=== PATIENT | male | born 1975 | race Caucasian/White ===

== ENCOUNTER 2017-10-06 20:51 | Emergency (ER) | payer SELFPAY ==
[2017-10-06] MEDS ORDERED: Acetaminophen/Codeine 30-300mg Tablet ONE (21:39)
[2017-10-06] MEDS ORDERED: Penicillin V Potassium 250 MG TAB ONE (21:39)
== END 2017-10-06 21:45 | disposition home or self-care (01) ==
LOC: NAV ERS 20:51
DX: K04.7 Periapical abscess without sinus (principal); K02.9 Dental caries, unspecified; F17.210 Nicotine dependence, cigarettes, uncomplicated
CPT/HCPCS: 99406

== ENCOUNTER 2018-02-21 18:37 | Emergency (ER) | payer SELFPAY ==
[2018-02-21] MEDS ORDERED: Ketorolac Tromethamine 60 MG/2 ML VIAL ONE (19:04)
== END 2018-02-21 19:20 | disposition home or self-care (01) ==
LOC: NAV ERS 18:37
DX: K02.9 Dental caries, unspecified (principal); F17.210 Nicotine dependence, cigarettes, uncomplicated
CPT/HCPCS: 96372; J1885

== ENCOUNTER 2018-04-17 17:38 | Emergency (ER) | payer SELFPAY ==
[2018-04-17] MEDS ORDERED: predniSONE 20 MG TAB ONE (18:23)
[2018-04-17] MEDS ORDERED: Metoclopramide HCl 10 MG/2 ML VIAL ONE (18:25)
[2018-04-17] MEDS ORDERED: diphenhydrAMINE 50 MG/ML VIAL ONE (18:25)
[2018-04-17 18:26] LABS: #Basophils 0.1 thou/uL (0.0-0.2); #Eosinphils 0.3 thou/uL (0.0-0.7); #Lymphocytes 1.4 thou/uL (1.20-3.40); #Monocytes 0.3 thou/uL (0.11-0.59); #Neutrophils 5.1 thou/uL (1.40-6.50); %Basophils 1.3 % (0.0-1.0); %Eosinophils 4.6 % (0.0-10.0); %Lymphocytes 19.5 % (21.0-51.0); %Monocytes 4.7 % (0.0-10.0); %Neutrophils 69.9 % (42.0-75.0); Hemoglobin 14.7 g/dL (14.0-18.0); Mean Corpuscular HGB CONC 31.2 g/dL (32.0-36.0); Mean Corpuscular Hemoglobin 28.5 pg (27.0-31.0); Mean Corpuscular Volume 91.2 fL (78.0-98.0); Mean Platelet Volume 7.9 fL (7.4-10.4); Platelet Count 228 thou/uL (130-400); RBC Distribution Width 15.1 % (11.5-14.5); Red Blood Cell (RBC) Count 5.15 mill/uL (4.70-6.10); White Blood Cell (WBC) Count 7.3 thou/uL (4.8-10.8)
[2018-04-17 18:28] LABS: Prothrombin Time 13.6 SEC (12.0-14.7)
[2018-04-17 18:37] LABS: ALT (SGPT) 9 U/L (8-55); AST (SGOT) 13 U/L (5-34); Albumin 4.3 g/dL (3.5-5.0); Alkaline Phosphatase 104 U/L (40-150); Anion Gap 13 mmol/L (10-20); BUN (Urea Nitrogen) 12 mg/dL (8.9-20.6); Bilirubin, Total 0.3 mg/dL (0.2-1.2); Calc. Creatinine Clearance 0 mL/min (70-130); Calcium 9.3 mg/dL (7.8-10.44); Carbon Dioxide 24 mmol/L (22-29); Chloride 107 mmol/L (98-107); Estimated GFR-MDRD 80; Globulin 2.7 g/dL (2.4-3.5); Glucose 105 mg/dL (70-105); Sodium 140 mmol/L (136-145)
--- NOTE | 2018-04-17 20:27 | CT ---
CT OF THE BRAIN WITHOUT CONTRAST 04/17/18 COMPARISON: None. HISTORY: Headache. Recently diagnosed with lymphoma. TECHNIQUE: Multiple contiguous axial images were obtained in a CT of the brain without contrast. FINDINGS: The brain is normal in morphology and attenuation without focal lesions or confluent areas of infarct ion. There is no evidence of hydrocephalus, intracranial hemorrhage or extra-axial fluid collections. The calvarium and overlying soft tissues are unremarkable. The visualized paranasal sinuses and masto id air cells are well aerated. IMPRESSION: No evidence of acute intracranial abnormality. POS: [facility]
== END 2018-04-17 19:55 | disposition home or self-care (01) ==
LOC: NAV ERS 17:38
DX: J02.9 Acute pharyngitis, unspecified (principal); I10 Essential (primary) hypertension; F17.210 Nicotine dependence, cigarettes, uncomplicated
CPT/HCPCS: 70450; 80053; 85025; 85610; 87081; 87430; 96374; 96375; J1200; J2765; J7506

== ENCOUNTER 2018-05-07 15:42 | Emergency (ER) | payer SELFPAY ==
[2018-05-07] MEDS ORDERED: HYDROcodone/Acetaminophen 10/325 mg Tablet ONE (16:24)
== END 2018-05-07 16:32 | disposition home or self-care (01) ==
LOC: NAV ERS 15:42
DX: G89.3 Neoplasm related pain (acute) (chronic) (principal); C83.11 Mantle cell lymphoma, lymph nodes of head, face, and neck; R07.0 Pain in throat; F17.210 Nicotine dependence, cigarettes, uncomplicated
CPT/HCPCS: 99283

== ENCOUNTER 2018-05-15 19:58 | Emergency (ER) | payer SELFPAY ==
[2018-05-15] MEDS ORDERED: Ketorolac Tromethamine 60 MG/2 ML VIAL ONE (20:30)
[2018-05-15] MEDS ORDERED: predniSONE 20 MG TAB ONE (20:30)
== END 2018-05-15 20:51 | disposition home or self-care (01) ==
LOC: NAV ERS 19:58
DX: M54.41 Lumbago with sciatica, right side (principal); F17.220 Nicotine dependence, chewing tobacco, uncomplicated
CPT/HCPCS: 96372; J1885; J7506

== ENCOUNTER 2018-11-12 15:18 | Emergency (ER) | payer OTHER ==
[2018-11-12] MEDS ORDERED: Ondansetron PF 4 MG/2 ML Vial ONE (16:06)
[2018-11-12] MEDS ORDERED: diphenhydrAMINE 50 MG/ML VIAL ONE (16:06)
[2018-11-12] MEDS ORDERED: Promethazine HCl 25 MG/ML VIAL ONE (16:06)
[2018-11-12 16:17] LABS: Hemoglobin 13.6 g/dL (14.0-18.0); Mean Corpuscular HGB CONC 31.8 g/dL (32.0-36.0); Platelet Count 179 thou/uL (130-400); RBC Distribution Width 15.1 % (11.5-14.5); Red Blood Cell (RBC) Count 4.68 mill/uL (4.70-6.10); White Blood Cell (WBC) Count 15.9 thou/uL (4.8-10.8)
[2018-11-12 16:20] LABS: ALT (SGPT) 13 U/L (8-55); AST (SGOT) 23 U/L (5-34); Albumin 3.9 g/dL (3.5-5.0); Alkaline Phosphatase 144 U/L (40-150); Anion Gap 15 mmol/L (10-20); BUN (Urea Nitrogen) 8 mg/dL (8.9-20.6); Bilirubin, Total 0.2 mg/dL (0.2-1.2); Calc. Creatinine Clearance 0 mL/min (70-130); Carbon Dioxide 27 mmol/L (22-29); Chloride 101 mmol/L (98-107); Estimated GFR-MDRD 80; Globulin 2.7 g/dL (2.4-3.5); Glucose 89 mg/dL (70-105); Potassium 3.5 mmol/L (3.5-5.1); Protein, Total 6.6 g/dL (6.0-8.3); Sodium 139 mmol/L (136-145)
[2018-11-12 16:28] LABS: Band 5 % (5-11); Eosinophils 4 % (0-10); Lymphocytes 11 % (21-51); MDiff Complete? YES; Monocytes 2 % (0-10); Neutrophil 78 % (42-75); Platelet Morphology Comment Appears Adequate; RBC Morphology Normal
[2018-11-12] MEDS ORDERED: Sodium Chloride 0.9% 1,000 ML ONE (16:32)
--- NOTE | 2018-11-12 17:12 | CT ---
CT head noncontrast HISTORY: Headache. COMPARISON: 04/17/2018. FINDINGS: There is no evidence of acute intracranial hemorrhage or infarct. The ventricles appear nor mal in size, shape and position. There is no mass effect or shift of midline structures. Visualized paranasal sinuses remain well-aerated. IMPRESSION: No acute intracranial abnormalities are demonstrated.
== END 2018-11-12 17:26 | disposition home or self-care (01) ==
LOC: NAV ERS 15:18
DX: R51 Headache (principal); I10 Essential (primary) hypertension; F41.9 Anxiety disorder, unspecified; F32.9 Major depressive disorder, single episode, unspecified; Z79.899 Other long term (current) drug therapy
CPT/HCPCS: 36415; 70450; 80053; 82274; 85025; 96374; 96375; J1200; J2405; J2550; J7050

== ENCOUNTER 2020-10-19 17:15 | Emergency (ER) | payer OTHER, SELFPAY ==
[2020-10-19] MEDS ORDERED: methylPREDNISolone Sod Succ/PF 125 MG/2 ML VIAL ONE (18:02)
[2020-10-19] MEDS ORDERED: Doxycycline 100 MG CAP ONE (18:02)
== END 2020-10-19 18:48 | disposition home or self-care (01) ==
LOC: NAV ERS 17:15
DX: J06.9 Acute upper respiratory infection, unspecified (principal); I10 Essential (primary) hypertension; F17.210 Nicotine dependence, cigarettes, uncomplicated; Z79.899 Other long term (current) drug therapy
CPT/HCPCS: 96372; 99283; J2930

== ENCOUNTER 2021-01-03 11:22 | Emergency (ER) | payer SELFPAY ==
[2021-01-03 22:52] LABS: SARS-CoV-2 PCR by NAA Not Detected (NotDetected)
== END 2021-01-03 12:04 | disposition home or self-care (01) ==
LOC: NAV ERS 11:22
DX: Z20.822 Contact with and (suspected) exposure to COVID-19 (principal); I10 Essential (primary) hypertension; F17.210 Nicotine dependence, cigarettes, uncomplicated; Z79.899 Other long term (current) drug therapy
CPT/HCPCS: 99283; U0003; U0005

== ENCOUNTER 2022-04-02 19:21 | Emergency (ER) | payer OTHER, SELFPAY | END 2022-04-02 20:35 | disposition home or self-care (01) | LOC: NAV ERS 19:21 | DX: H65.92 Unspecified nonsuppurative otitis media, left ear (principal); I10 Essential (primary) hypertension; F17.210 Nicotine dependence, cigarettes, uncomplicated; Z79.899 Other long term (current) drug therapy | CPT/HCPCS: 99282 ==

== ENCOUNTER 2022-09-17 12:43 | Emergency (ER) | payer OTHER ==
[2022-09-17] MEDS ORDERED: Amoxicillin/Potassium Clav 875 MG TAB ONE (13:21)
== END 2022-09-17 13:26 | disposition home or self-care (01) ==
LOC: NAV ERS 12:43
DX: K04.7 Periapical abscess without sinus (principal); I10 Essential (primary) hypertension; F17.210 Nicotine dependence, cigarettes, uncomplicated; Z79.899 Other long term (current) drug therapy
CPT/HCPCS: 99283